=== PATIENT | female | born 1990 | race Caucasian/White ===

== ENCOUNTER 2016-06-17 13:27 | Emergency (ER) | payer BC ==
[2016-06-17 14:39] VITALS: BP 125/77
--- NOTE | 2016-06-17 14:59 | UC ---
Throat Pain/Nasal Raul HPI - HPI Summary HPI Summary: patient has had fever, cough, sore throat, LIANG, bodyaches for the past 3 days - History of Current Complaint Chief Complaint: UCGeneralIllness Stated Complaint: SORE THROAT Time Seen by Provider: 06/17/16 14:50 Hx Obtained From: Patient Hx Last Menstrual Period: 3 weeks ago ?: No Onset/Duration: Sudden Onset, Lasting Days Severity: Moderate Associated Signs & Symptoms: Positive: Dysphagia, Wheezing, Hoarseness, Sinus Discomfort, Fever - Epiglottits Risk Factors Epiglottis Risk Factors: Negative - Allergies/Home Medications Allergies/Adverse Reactions: Allergies Allergy/AdvReac Type Severity Reaction Status Date / Time No Known Allergies Allergy Verified 06/17/16 14:33 Home Medications: Home Medications Pseudoephedrine-Ibuprofen [Advil Cold & Sinus] 1 tab PO Q6H PRN 06/17/16 [ History Confirmed 06/17/16] PMH/Surg Hx/FS Hx/Imm Hx Previously Healthy: Yes Endocrine History Of: Denies: Diabetes, Hyperthyroidism, Hypothyroidism Respiratory History Of: Reports: Asthma - as a child - Surgical History Surgical History: None Surgery Procedure, Year, and Place: wisdom teeth extraction - Family History Known Family History: Positive: Hypertension - Social History Alcohol Use: Rare Substance Use Type: None Smoking Status (MU): Never Smoked Tobacco Review of Systems Constitutional: Fever, Chills, Fatigue Skin: Negative Eyes: Negative ENT: Sore Throat, Ear Ache, Nasal Discharge Respiratory: Cough Cardiovascular: Negative Gastrointestinal: Negative Genitourinary: Negative Motor: Negative Musculoskeletal: Arthralgia, Myalgia Neurological: Headache Psychological: Negative All Other Systems Reviewed And Are Negative: Yes Physical Exam Triage Information Reviewed: Yes Appearance: Well-Nourished, Ill-Appearing, Pain Distress Vital Signs: Initial Vital Signs Temp 100.1 F 06/17/16 14:34 Pulse 117 06/17/16 14:34 Resp 16 06/17/16 14:34 BP 125/77 06/17/16 14:34 Pulse Ox 99 06/17/16 14:34 Vital Signs Reviewed: Yes Eye Exam: Normal Eyes: Positive: Conjunctiva Inflamed ENT: Positive: Pharyngeal erythema, TMs normal, TM red, Tonsillar swelling, Tonsillar exudate Dental Exam: Normal Neck exam: Normal Neck: Positive: Supple, Nontender, No Lymphadenopathy Respiratory Exam: Normal Respiratory: Positive: Chest non-tender, Normal breath sounds, No respiratory distress, No accessory muscle use, Wheezing, Inspiration Cardiovascular Exam: Normal Cardiovascular: Positive: No Murmur, Pulses Normal, Tachycardia Abdominal Exam: Normal Abdomen Description: Positive: Nontender, No Organomegaly, Soft Bowel Sounds: Positive: Present Musculoskeletal Exam: Normal Musculoskeletal: Positive: Strength Intact, ROM Intact, No Edema Neurological Exam: Normal Neurological: Positive: Alert, Muscle Tone Normal Psychological Exam: Normal Skin Exam: Normal Throat Pain/Nasal Course/Dx - Course Course Of Treatment: hx obtained, exam performed, meds reveiwed, rapid flu and strep obtained, patient had Motrin 1 hour prior to arrival. - Differential Dx/Diagnosis Differential Diagnosis/HQI/PQRI: Influenza, Laryngitis, Otitis Media, Pharyngitis, Sinusitis, URI Provider Diagnoses: influenza B. Strep pharyngitis Discharge - Discharge Plan Condition: Stable Disposition: HOME Prescriptions: Amoxicillin (*) [Amoxicillin 875 MG (*)] 875 mg PO BID #20 tab Patient Education Materials: Strep Throat (ED), Influenza (ED) Forms: *Work Release Referrals: Mike BRUCE,Derek Znuiga [Primary Care Provider] - Additional Instructions: 1. take the antibiotic as prescribed 2. increase fluid intake and get plenty of rest. 3. Use secondary form of control as your medication decreases the effectivness of your control.
== END 2016-06-17 15:33 | disposition home or self-care (01) ==
LOC: UCCORT 13:27
DX: J11.1 Influenza due to unidentified influenza virus with other respiratory manifestations (principal)
CPT/HCPCS: 87502; 87651; 99212; G0463

== ENCOUNTER 2016-07-22 07:06 | Emergency (ER) | payer BC ==
[2016-07-22 07:14] VITALS: BP 125/76
--- NOTE | 2016-07-22 07:38 | UC ---
Complaint Female HPI - HPI Summary HPI Summary: The patient comes in today for: 1. Dysuria: Onset: Last night. Palliative/provocative: Urination makes worse, but AZO helps. Quality: Burning. Region: Inside, Severity: AZO now helps, but before 8/10 Time: Comes and goes. Associated symptoms: Fever: None. Unexpected vaginal bleeding/discharge: None. Urinary frequency: Present. Urinary urgency: None. Last UTI: March 2016 * - History Of Current Complaint Chief Complaint: UCGU Stated Complaint: URINARY COMPLAINT Time Seen by Provider: 07/22/16 07:31 Hx Obtained From: Patient Hx Last Menstrual Period: 07/21/16 - Allergies/Home Medications Allergies/Adverse Reactions: Allergies Allergy/AdvReac Type Severity Reaction Status Date / Time No Known Allergies Allergy Verified 07/22/16 07:14 Home Medications: Home Medications Phenazopyridine HCl [Azo Urinary Pain Relief] 95 mg PO ONCE 07/22/16 [History Confirmed 07/22/16] PMH/Surg Hx/FS Hx/Imm Hx Previously Healthy: No - Family planning/BCP Endocrine History Of: Denies: Diabetes, Thyroid Disease, Hyperthyroidism, Hypothyroidism, Dyslipidemia Cardiovascular History Of: Denies: Cardiac Disorders, Hypertension, Pacemaker/ICD, Myocardial Infarction , Congestive Heart Failure, Atrial Fibrillation, Deep Vein Thrombosis, Bleeding Disorders Respiratory History Of: Reports: Asthma - as a child Denies: COPD, Bronchitis, Pneumonia, Pulmonary Embolism GI/ History Of: Denies: Gastroesophageal Reflux, Ulcer, Gastrointestinal Bleed, Gall Bladder Disease, Kidney Stones, Diverticulitis, Renal Disease, Urosepsis Neurological History Of: Denies: TIA, CVA, Dementia, Seizures, Migraine Psychological History Of: Reports: Anxiety Denies: Depression, Bipolar Disorder, Schizophrenia, Post Traumatic Stress Disorder Cancer History Of: Denies: Lung Cancer, Colorectal Cancer, Breast Cancer, Prostate Cancer, Cervical Cancer Other History Of: Negative For: HIV, Hepatitis B, Hepatitis C, Anticoagulant Therapy - Surgical History Surgical History: Yes Surgery Procedure, Year, and Place: wisdom teeth extraction - Family History Known Family History: Positive: Hypertension Negative: Cardiac Disease, Diabetes - Social History Occupation: Student Alcohol Use: Rare Substance Use Type: None Smoking Status (MU): Never Smoked Tobacco Review of Systems Constitutional: Negative Skin: Negative Eyes: Negative ENT: Negative Respiratory: Negative Cardiovascular: Negative Genitourinary: Dysuria, Frequency All Other Systems Reviewed And Are Negative: Yes Physical Exam Triage Information Reviewed: Yes Appearance: Well-Appearing, No Pain Distress, Well-Nourished Vital Signs: Initial Vital Signs Temp 98.6 F 07/22/16 07:09 Pulse 70 07/22/16 07:09 Resp 16 07/22/16 07:09 BP 125/76 07/22/16 07:09 Pulse Ox 98 07/22/16 07:09 Vital Signs Reviewed: Yes Eyes: Positive: Conjunctiva Clear. Negative: Discharge ENT: Negative: Hearing grossly normal, Pharyngeal erythema, Nasal congestion, Nasal drainage, TM bulging, TM dull, TM red, Tonsillar swelling, Tonsillar exudate Dental: Negative: Gross Decay/Caries @, Dental Fracture @ Neck: Positive: Supple, Nontender, No Lymphadenopathy. Negative: Nuchal Rigidity Respiratory: Positive: Chest non-tender, Lungs clear, No respiratory distress, No accessory muscle use. Negative: Crackles, Wheezing Cardiovascular: Positive: RRR, No Murmur Abdomen Description: Positive: Nontender, No Organomegaly, Soft. Negative: CVA Tenderness (R), CVA Tenderness (L), Distended, Guarding Musculoskeletal: Positive: Strength Intact, ROM Intact Neurological: Positive: Alert, Muscle Tone Normal Psychological: Positive: Age Appropriate Behavior, Consolable Skin: Negative: rashes, breakdown Diagnostics - Laboratory Diagnostic Studies Completed/Ordered: No urinary screen done due to AZO use. Complaint Female Dx - Differential Dx/Diagnosis Differential Diagnosis/HQI/PQRI: Renal Colic, Urinary Tract Infection Provider Diagnoses: UTI Discharge - Discharge Plan Condition: Stable Disposition: HOME Patient Education Materials: Urinary Tract Infection in Women (ED) Referrals: Mike BRUCE,Derek Zuniga [Primary Care Provider] - 1 Week (Please see your primary care provider in about one to two weeks to see how well you are doing. If you get worse, please be seen sooner.)
== END 2016-07-22 07:50 | disposition home or self-care (01) ==
LOC: UCCORT 07:06
DX: N39.0 Urinary tract infection, site not specified (principal); J45.909 Unspecified asthma, uncomplicated; F41.9 Anxiety disorder, unspecified
CPT/HCPCS: 87077; 87086; 87186; 99212; G0463

== ENCOUNTER 2016-09-08 10:09 | Emergency (ER) | payer BC ==
--- NOTE | 2016-09-08 10:41 | UC ---
Complaint Female HPI - HPI Summary HPI Summary: urinary pain and burning began this morning--no fevers, chills or back pain, no nausea vomiting or vaginal discharge - History Of Current Complaint Chief Complaint: UCGU Stated Complaint: URINARY Time Seen by Provider: 09/08/16 10:35 Hx Obtained From: Patient Hx Last Menstrual Period: 07/21/16 ?: No Onset/Duration: Sudden Onset, Lasting Hours, Still Present Timing: Constant Severity Initially: Moderate Severity Currently: Moderate Pain Intensity: 6 Pain Scale Used: 0-10 Numeric Character: Burning Aggravating Factor(s): Urination Alleviating Factor(s): Nothing Associated Signs And Symptoms: Positive: Negative - Allergies/Home Medications Allergies/Adverse Reactions: Allergies Allergy/AdvReac Type Severity Reaction Status Date / Time No Known Allergies Allergy Verified 09/08/16 10:56 Home Medications: Home Medications Lactobacillus [Probiotic] 1 cap PO DAILY 09/08/16 [History Confirmed 09/08/16] PMH/Surg Hx/FS Hx/Imm Hx Previously Healthy: No Psychological History: Depression Other History Of: Negative For: HIV, Hepatitis B, Hepatitis C, Anticoagulant Therapy - Surgical History Surgical History: Yes Surgery Procedure, Year, and Place: wisdom teeth extraction - Family History Known Family History: Positive: Hypertension Negative: Cardiac Disease, Diabetes - Social History Occupation: Employed Full-time Lives: With Family Alcohol Use: Rare Substance Use Type: None Smoking Status (MU): Never Smoked Tobacco Review of Systems Constitutional: Negative Skin: Negative Eyes: Negative ENT: Negative Respiratory: Negative Cardiovascular: Negative Gastrointestinal: Negative Genitourinary: Dysuria, Frequency, Urgency Motor: Negative Neurovascular: Negative Musculoskeletal: Negative Neurological: Negative Psychological: Negative All Other Systems Reviewed And Are Negative: Yes Physical Exam Triage Information Reviewed: Yes Appearance: Well-Appearing, No Pain Distress, Well-Nourished Vital Signs Reviewed: Yes Eye Exam: Normal Eyes: Positive: Conjunctiva Clear ENT Exam: Normal ENT: Positive: Normal ENT inspection, Hearing grossly normal. Negative: Nasal congestion, Nasal drainage, Trismus, Muffled/hoarse voice Dental Exam: Normal Neck exam: Normal Neck: Positive: Supple, Nontender Respiratory Exam: Normal Respiratory: Positive: Chest non-tender, No respiratory distress, No accessory muscle use Cardiovascular Exam: Normal Cardiovascular: Positive: RRR, Pulses Normal, Brisk Capillary Refill Abdominal Exam: Normal Abdomen Description: Positive: Nontender, No Organomegaly, Soft Musculoskeletal Exam: Normal Musculoskeletal: Positive: Strength Intact, ROM Intact Neurological Exam: Normal Neurological: Positive: Alert, Muscle Tone Normal Psychological Exam: Normal Skin Exam: Normal Diagnostics - Laboratory Diagnostic Studies Completed/Ordered: ua--+ Blood and Leuks Complaint Female Dx - Course Course Of Treatment: culture urine, increase fluids, macrodantin, azo follow with pcp in 2weeks - Differential Dx/Diagnosis Differential Diagnosis/HQI/PQRI: , Renal Colic, Ureteral Stone, Urinary Tract Infection Provider Diagnoses: UTI Discharge - Discharge Plan Condition: Stable Disposition: HOME Prescriptions: Nitrofurantoin Monohyd Macro [Macrobid] 100 mg PO BID #20 cap Patient Education Materials: Phenazopyridine (By mouth), Urinary Tract Infection in Women (ED) Referrals: Mike BRUCE,Derek Zuniga [Primary Care Provider] - 2 Weeks
[2016-09-08 11:02] VITALS: BP 111/72
== END 2016-09-08 11:06 | disposition home or self-care (01) ==
LOC: UCCORT 10:09
DX: N39.0 Urinary tract infection, site not specified (principal)
CPT/HCPCS: 81003; 84702; 87077; 87086; 87186; 87798; 99212; G0463

== ENCOUNTER 2017-05-02 07:02 | Emergency (ER) | payer BC ==
--- NOTE | 2017-05-02 07:23 | UC ---
Complaint Female HPI - HPI Summary HPI Summary: 26 year old female with urinary complaint for 1-2 days and with burning. took Azo as well so urine is discolored. no fever. no n/v/d. no vaginal discharge. has had these numerous times in the past and feels the same as previous UTI [ End ] - History Of Current Complaint Stated Complaint: URINARY COMPLAINT Time Seen by Provider: 05/02/17 07:20 Hx Obtained From: Patient Hx Last Menstrual Period: 07/21/16 Onset/Duration: Sudden Onset Timing: Constant Associated Signs And Symptoms: Positive: Negative Related Hx: Similar Episode/Dx as: - Allergies/Home Medications Allergies/Adverse Reactions: Allergies Allergy/AdvReac Type Severity Reaction Status Date / Time seasonal and cats Allergy Eyes Uncoded 05/02/17 07:14 Itchy/Swollen/Red/Watery Home Medications: Home Medications D Mannos Cranberry 1 dose PO SEE INSTRUCTIONS 05/02/17 [History Confirmed ] Pumpkin Seed Extract/Soy Germ [Azo Bladder Control/Go-Le] 1 cap PO SEE INSTRUCTIONS PRN 05/02/17 [History Confirmed 05/02/17] PMH/Surg Hx/FS Hx/Imm Hx Previously Healthy: Yes Other History Of: Negative For: HIV, Hepatitis B, Hepatitis C, Anticoagulant Therapy - Surgical History Surgical History: Yes Surgery Procedure, Year, and Place: wisdom teeth extraction - Family History Known Family History: Positive: Hypertension Negative: Cardiac Disease, Diabetes - Social History Occupation: Employed Full-time Lives: With Family Alcohol Use: Rare Substance Use Type: None Smoking Status (MU): Never Smoked Tobacco Review of Systems Genitourinary: Dysuria, Frequency, Urgency Is Patient Immunocompromised?: No All Other Systems Reviewed And Are Negative: Yes Physical Exam Triage Information Reviewed: Yes Appearance: Well-Appearing, No Pain Distress, Well-Nourished Vital Signs Reviewed: Yes Eye Exam: Normal ENT Exam: Normal Neck exam: Normal Neck: Positive: 1 Respiratory Exam: Normal Cardiovascular Exam: Normal Abdominal Exam: Normal Musculoskeletal Exam: Normal Neurological Exam: Normal Psychological Exam: Normal Skin Exam: Normal Complaint Female Dx - Course Course Of Treatment: [place] Azo -- send for culture -- start empiric treatment -- bactrim -- she can tolerate has taiken before, aware of interactions with cotnrol - Differential Dx/Diagnosis Provider Diagnoses: UTI Discharge - Discharge Plan Condition: Good Disposition: HOME Prescriptions: Sulfamethox/Trimethoprim DS* [Bactrim DS 800/160 TAB*] 1 tab PO BID #10 tab Patient Education Materials: Urinary Tract Infection in Women (DC) Referrals: No Primary Care Phys,NOPCP [Primary Care Provider] - 4 Days (if needed )
[2017-05-02 07:24] VITALS: BP 121/71
--- NOTE | 2017-05-04 07:11 | UC ---
- Progress Note Progress Note: 05/03/17 prelim cx + E. coli "many". 05/02/17 -rx Bactrim ds. Sens. pending.
== END 2017-05-02 07:50 | disposition home or self-care (01) ==
LOC: UCCORT 07:02
DX: N39.0 Urinary tract infection, site not specified (principal); B96.20 Unspecified Escherichia coli [E. coli] as the cause of diseases classified elsewhere
CPT/HCPCS: 87077; 87086; 87186; 99212; G0463

== ENCOUNTER 2017-05-29 10:30 | Emergency (ER) | payer BC ==
[2017-05-29 12:22] VITALS: BP 115/74
--- NOTE | 2017-05-29 12:44 | UC ---
Ear Complaint HPI - HPI Summary HPI Summary: 5 DAYS OF URI SX. ONSET YESTERDAY OF RIGHT EAR PAIN AND MUTED HEARING. NO FEVER OR EAR DRAINAGE. - History of Current Complaint Chief Complaint: UCGeneralIllness Stated Complaint: RT EAR COMPLAINT Time Seen by Provider: 05/29/17 12:31 Hx Obtained From: Patient Hx Last Menstrual Period: 05/25/17 Onset/Duration: Gradual Onset, Lasting Days, Still Present Severity Initially: Moderate Severity Currently: Moderate Pain Intensity: 0 Pain Scale Used: 0-10 Numeric Aggravating Factors: Nothing Alleviating Factors: Nothing Associated Signs/Symptoms: Positive: Hearing Loss, URI Symptoms. Negative: Discharge, Foreign Body Sensation - Allergies/Home Medications Allergies/Adverse Reactions: Allergies Allergy/AdvReac Type Severity Reaction Status Date / Time seasonal and cats Allergy Eyes Uncoded 05/29/17 12:18 Itchy/Swollen/Red/Watery Home Medications: Home Medications raNITIdine HCl [Ranitidine HCl] 150 mg PO DAILY 05/29/17 [History Confirmed ] PMH/Surg Hx/FS Hx/Imm Hx Respiratory History: Asthma Other History Of: Negative For: HIV, Hepatitis B, Hepatitis C, Anticoagulant Therapy - Surgical History Surgical History: Yes Surgery Procedure, Year, and Place: wisdom teeth extraction - Family History Known Family History: Positive: Hypertension Negative: Cardiac Disease, Diabetes - Social History Alcohol Use: Rare Substance Use Type: None Smoking Status (MU): Never Smoked Tobacco Review of Systems Constitutional: Negative ENT: Sore Throat, Ear Ache, Nasal Discharge Respiratory: Cough Cardiovascular: Negative Gastrointestinal: Negative All Other Systems Reviewed And Are Negative: Yes Physical Exam Triage Information Reviewed: Yes Appearance: Well-Appearing, No Pain Distress, Well-Nourished Vital Signs: Initial Vital Signs Temp 98.8 F 05/29/17 12:16 Pulse 87 05/29/17 12:16 Resp 16 05/29/17 12:16 BP 115/74 05/29/17 12:16 Pulse Ox 98 05/29/17 12:16 Vital Signs Reviewed: Yes Eyes: Positive: Conjunctiva Clear ENT: Positive: Hearing grossly normal, Pharynx normal, Other - LEFT TM NORMAL. RIGHT TM DULL, ERYTHEMATOUS Neck: Positive: Supple, Nontender, No Lymphadenopathy Respiratory Exam: Normal Cardiovascular Exam: Normal Abdomen Description: Positive: Soft Musculoskeletal: Positive: No Edema Neurological: Positive: Alert Psychological: Positive: Age Appropriate Behavior Skin: Negative: rashes Ear Complaint Course/Dx - Differential Dx/Diagnosis Provider Diagnoses: RIGHT AOM Discharge - Sign-Out/Discharge Documenting (check all that apply): Discharge - Discharge Plan Condition: Stable Disposition: HOME Prescriptions: Amoxicillin PO (*) [Amoxicillin 500 MG CAP*] 1,000 mg PO Q12H #28 cap Patient Education Materials: Ear Infection (ED) Referrals: No Primary Care Phys,NOPCP [Primary Care Provider] - Additional Instructions: CALL THE NUMBER BELOW FOR ASSISTANCE IN ESTABLISHING WITH A PCP An additional resource available to assist in finding the appropriate physician for your health care needs is [facility] ([facility]). You may contact them by calling [phone]. - Billing Disposition and Condition Condition: STABLE Disposition: HOME
== END 2017-05-29 12:51 | disposition home or self-care (01) ==
LOC: UCCORT 10:30
DX: H66.91 Otitis media, unspecified, right ear (principal)
CPT/HCPCS: 99212; G0463

== ENCOUNTER 2018-03-25 15:44 | Emergency (ER) | payer BC ==
[2018-03-25 16:12] VITALS: BP 125/84
--- NOTE | 2018-03-25 16:41 | ED ---
Head Injury - HPI Summary HPI Summary: patient fell last night, no LOC, today, persistent sense of dizzyness, having difficulty putting a sentence together, some word finding difficulty - History Of Current Complaint Chief Complaint: UCHeadInjury Stated Complaint: HEAD INJURY 03/24 Time Seen by Provider: 03/25/18 16:31 Hx Obtained From: Patient Hx Last Menstrual Period: 03/14/18 Mechanism Of Injury: Blunt Trauma Onset/Duration: Started Days Ago Onset of Pain: Hours Severity Currently: Moderate Severity Initially: Moderate Pain Intensity: 0 Location of Head Injury: Occipital Location: Diffuse Character: Dull Aggravating Factor(s): Movement Associated Signs And Symptoms: Confusion, Nausea - Allergies/Home Medications Allergies/Adverse Reactions: Allergies Allergy/AdvReac Type Severity Reaction Status Date / Time No Known Allergies Allergy Verified 03/25/18 16:07 PMH/Surg Hx/FS Hx/Imm Hx Previously Healthy: Yes Endocrine/Hematology History: Denies: Hx Anticoagulant Therapy, Hx Diabetes, Hx Thyroid Disease Cardiovascular History: Denies: Hx Congestive Heart Failure, Hx Deep Vein Thrombosis, Hx Hypertension , Hx Myocardial Infarction, Hx Pacemaker/ICD Respiratory History: Reports: Hx Asthma Denies: Hx Chronic Obstructive Pulmonary Disease (COPD), Hx Lung Cancer, Hx Pneumonia, Hx Pulmonary Embolism GI History: Denies: Hx Gall Bladder Disease, Hx Gastrointestinal Bleed, Hx Ulcer, Hx Urosepsis History: Denies: Hx Kidney Stones, Hx Renal Disease Neurological History: Denies: Hx Dementia, Hx Migraine, Hx Seizures, Hx Transient Ischemic Attacks (TIA) Psychiatric History: Reports: Hx Anxiety Denies: Hx Depression, Hx Schizophrenia, Hx Bipolar Disorder - Surgical History Surgery Procedure, Year, and Place: wisdom teeth extraction Infectious Disease History: No Infectious Disease History: Denies: Hx Human Immunodeficiency Virus (HIV), Traveled Outside the [place] in Last 30 Days - Family History Known Family History: Positive: Hypertension Negative: Cardiac Disease, Diabetes - Social History Alcohol Use: Occasionally Substance Use Type: Reports: None Smoking Status (MU): Never Smoked Tobacco Review of Systems Constitutional: Negative Positive: Photophobia ENT: Other - dizzy Cardiovascular: Negative Respiratory: Negative Positive: Shortness Of Breath Gastrointestinal: Negative Skin: Negative Neurological: Other - word finding difficulty, dizzyness All Other Systems Reviewed And Are Negative: Yes Physical Exam Triage Information Reviewed: Yes Vital Signs On Initial Exam: Initial Vitals Temp Pulse Resp BP Pulse Ox 37.7 C 78 16 125/84 99 03/25/18 16:07 03/25/18 16:07 03/25/18 16:07 03/25/18 16:07 03/25/18 16:07 Vital Signs Reviewed: Yes Appearance: Positive: Well-Appearing Skin: Positive: Warm Head/Face: Positive: Normal Head/Face Inspection Eyes: Positive: Normal ENT: Positive: Normal ENT inspection Respiratory/Lung Sounds: Positive: Clear to Auscultation Neurological: Positive: Normal, Alert, Oriented to Person Place, Time, CN Intact II-III, Reflexes Intact, Expressive Aphasia - mild word finding difficulty Psychiatric: Positive: Normal Diagnostics - Vital Signs Vital Signs Temp Pulse Resp BP Pulse Ox 03/25/18 16:07 37.7 C 78 16 125/84 99 - Laboratory Lab Statement: Any lab studies that have been ordered have been reviewed, and results considered in the medical decision making process. Head Injury Course/Dx - Diagnoses Provider Diagnoses: Concussion Discharge - Sign-Out/Discharge Documenting (check all that apply): Patient Departure All imaging exams completed and their final reports reviewed: Yes - Discharge Plan Condition: Fair Disposition: HOME Patient Education Materials: Concussion (ED) Forms: *Work Release Referrals: Mike BRUCE,Derek Zuniga [Primary Care Provider] - - Billing Disposition and Condition Condition: FAIR Disposition: Home
== END 2018-03-25 17:29 | disposition home or self-care (01) ==
LOC: UCCORT 15:44
DX: S06.0X0A Concussion without loss of consciousness, initial encounter (principal); W19.XXXA Unspecified fall, initial encounter; Y92.9 Unspecified place or not applicable
CPT/HCPCS: 70450; 99212; G0463

== ENCOUNTER 2018-06-05 14:14 | Emergency (ER) | payer BC ==
[2018-06-05 14:49] VITALS: BP 126/83
--- NOTE | 2018-06-05 15:12 | UC ---
Complaint Female HPI - HPI Summary HPI Summary: 3 days of L sided lower back pain/hip pain. went to chiropractor to see if it would help but no resolution. then developed one day of dysuria. denies vaginal discharge. - History Of Current Complaint Chief Complaint: UCGU Stated Complaint: BACK PAIN, URINARY Time Seen by Provider: 06/05/18 14:40 Hx Obtained From: Patient Hx Last Menstrual Period: 05/08/18 Pain Intensity: 1 Pain Scale Used: 0-10 Numeric Aggravating Factor(s): Nothing Alleviating Factor(s): Nothing - Allergies/Home Medications Allergies/Adverse Reactions: Allergies Allergy/AdvReac Type Severity Reaction Status Date / Time No Known Allergies Allergy Verified 06/05/18 14:46 Home Medications: Home Medications Diclofenac Sodium EC TAB* [Voltaren EC TAB*] 25 mg PO TID PRN 06/05/18 [History Confirmed 06/05/18] Ibuprofen TAB* [Motrin TAB* 400 MG] 400 mg PO Q6H PRN 06/05/18 [History Confirmed 06/05/18] PMH/Surg Hx/FS Hx/Imm Hx Previously Healthy: Yes Other History Of: Negative For: HIV, Hepatitis B, Hepatitis C, Anticoagulant Therapy - Surgical History Surgical History: Yes Surgery Procedure, Year, and Place: wisdom teeth extraction - Family History Known Family History: Positive: Hypertension Negative: Cardiac Disease, Diabetes - Social History Alcohol Use: Occasionally Substance Use Type: None Smoking Status (MU): Never Smoked Tobacco Review of Systems All Other Systems Reviewed And Are Negative: Yes Constitutional: Positive: Negative Respiratory: Positive: Negative Cardiovascular: Positive: Negative Genitourinary: Positive: Dysuria Musculoskeletal: Positive: Arthralgia - L hip pain/back pain Neurological: Negative: Weakness Physical Exam Triage Information Reviewed: Yes Appearance: Well-Appearing Vital Signs: Initial Vital Signs Temp 98.3 F 06/05/18 14:43 Pulse 80 06/05/18 14:43 Resp 16 06/05/18 14:43 BP 126/83 06/05/18 14:43 Pulse Ox 100 06/05/18 14:43 Respiratory Exam: Normal Cardiovascular Exam: Normal Abdomen Description: Positive: Nontender, Soft. Negative: CVA Tenderness (R), CVA Tenderness (L) Musculoskeletal: Positive: Other: - +point tenderness at L hip/gluteal area Skin: Negative: Rashes Complaint Female Dx - Course Course Of Treatment: one day of dysuria and unrelated hip pain. offered antibx although no obvious uti on UA. Will send for cx and she would like to wait to see if there is a UTI. CONTROL: depo . Vitals good. Neg Urine hcg, UA did not show an obvious UTI. on exam there was point muscular tenderness on L hip/gluteal. - Differential Dx/Diagnosis Differential Diagnosis/HQI/PQRI: Renal Colic, Urinary Tract Infection Provider Diagnosis: Hip pain, Dysuria Discharge - Sign-Out/Discharge Documenting (check all that apply): Patient Departure All imaging exams completed and their final reports reviewed: No Studies - Discharge Plan Condition: Good Disposition: HOME Patient Education Materials: Dysuria (ED) Referrals: Mike BRUCE,Derek Zuniga [Primary Care Provider] - Additional Instructions: Please follow up with your primary care about your chronic UTIs - Billing Disposition and Condition Condition: GOOD Disposition: Home
== END 2018-06-05 15:38 | disposition home or self-care (01) ==
LOC: UCCORT 14:14
DX: R30.0 Dysuria (principal); M25.552 Pain in left hip; M54.5 Low back pain
CPT/HCPCS: 81003; 84702; 87086; 99211; G0463